=== PATIENT | male | born 1995 | race Two or more races ===

== ENCOUNTER 2019-03-07 20:19 | Emergency (ER) | payer MEDICAID ==
[~2019-03-07] VITALS: Ht 175.3 cm; Wt 68.0 kg
[2019-03-07 20:23] VITALS: BP 135/90
== END 2019-03-07 22:12 | disposition left against medical advice (07) ==
LOC: ER 20:19
DX: Z53.21 Procedure and treatment not carried out due to patient leaving prior to being seen by health care provider (principal)